=== PATIENT | female | born 1995 | race Hispanic/Latino ===

== ENCOUNTER 2020-01-04 11:06 | Emergency (ER) | payer OTHER, SELFPAY ==
--- NOTE | 2020-01-04 12:24 | RAD ---
Chest one view HISTORY: Cough. Chest pain. COMPARISON: 12/14/2019. FINDINGS: Cardiac silhouette and pulmonary vasculature are unremarkable. Mediastinum is midline. No confluent airspace consolidation or evidence of pneumothorax. IMPRESSION : No abnormalities are demonstrated.
[2020-01-05 11:02] LABS: SARS-CoV-2 MS2 Positive; SARS-CoV-2 N Gene Negative; SARS-CoV-2 S Gene Negative; SARS-CoV-2 orf1ab Negative
== END 2020-01-04 12:36 | disposition home or self-care (01) ==
LOC: ERS 11:06
DX: R04.2 Hemoptysis (principal); Z20.828 Contact with and (suspected) exposure to other viral communicable diseases
CPT/HCPCS: 71045; 87635; U0003

== ENCOUNTER 2020-02-20 06:46 | Outpatient (CLI) | payer OTHER ==
--- NOTE | 2020-02-20 07:59 | ULT ---
OB ULTRASOUND: HISTORY: Evaluate for nuchal cord FINDINGS: A single live intrauterine gestation is seen with measurements corresponding to an estimated gestatio nal age of 32 weeks, 5 daysand CAROLINE at 04/11/2020. The estimated weight measures 2002 g or 4 pounds and 7 ounces (13% by Hadlock criteria). biometry: BPD: 8.06 cm, 32 weeks 3 days HC: 29.92 cm, 33 weeks for 2 days AC: 28.83 cm, 32 weeks 6 days FL: 6.16 cm, 32 weeks 0 days heart rate: 138bpm Placenta: Anterior Placenta previa: No RIGOBERTO: 17cm A three-vessel cord is seen without definite evidence of a nuchal cord. IMPRESSION: Single live intrauterine gestation of 32 weeks 5 daysestimated gestational age and CAROLINE at 04/11/2020
== END 2020-02-20 06:47 | disposition home or self-care (01) ==
LOC: BICULT 06:46
PROVIDERS: ATTEND Student in an Organized Health Care Education/Training Program
DX: O28.3 Abnormal ultrasonic finding on antenatal screening of mother (principal); Z3A.32 32 weeks gestation of pregnancy
CPT/HCPCS: 76816

== ENCOUNTER 2020-04-01 03:12 | Inpatient (IN) | payer OTHER, SELFPAY ==
[2020-04-01] MEDS ORDERED: hydrALAZINE 20 MG/ML VIAL SLOW IVP PRN ×2 (04:24→06:56)
--- NOTE | 2020-04-01 04:24 | PDOC.FPROB ---
FMR OB H&P: HPI - History of Present Illness Chief Complaint: Abdominal pain History of Present Illness: Patient is a 24 year old at 39.5 wks who presents to triage with complains of abdominal pain that began at midnight. The patient is unable to specify the pain and is not able to quantity it on a 0-10 scale. + FM. She denies contractions, vaginal bleeding, vaginal discharge and LOF. She also denies headache, vision changes, chest pain, SOB, and dysuria. She was last seen at [facility] yesterday. Cervical check at that time was reportedly /-3. Primary Care Physician: [facility] Alex Torres FMR OB H&P: Current - Care : 2 Para: 1 Gestational age: 39.5 Due date: 04/05/20 Course/Complications: Anemia in treated with iron and vitamin. - OB Labs Blood type: O RH: positive Antibody Screen: negative HIV: negative RPR: negative HepBsAg: negative Rubella: immune Gonorrhea: negative Chlamydia: negative GBS: negative FMR OB H&P: History - Past Medical History PMH: None - OB History OB History: 1 uneventful with at 40 wks in 2015 in [place]. 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 - Family History Family History: Unremarkable FMR OB H&P: Medications - Current Home Medications: Medication Instructions Recorded Confirmed Type Vits96/Iron Fum/Folic 1 tab PO DAILY 02/09/20 02/09/20 History [ Tablet] Allergies/Adverse Reactions: Allergies Allergy/AdvReac Type Severity Reaction Status Date / Time No Known Allergies Allergy Verified 02/09/20 16:48 FMR OB H&P: ROS - Review of Systems General: denies: fever/chills, fatigue Eyes: denies: vision changes, double vision Cardiovascular: denies: chest pain, palpitation, edema Respiratory: denies: cough, shortness of breath Gastrointestinal: reports: abdominal pain. denies: cramping, nausea, vomiting Genitourinary (Female): denies: dysuria, hematuria Musculoskeletal: denies: pain, tenderness Neurologic: denies: syncope, headache Integumentary: denies: rash, lesions FMR OB H&P: Vital Signs - Heart Tones Baseline: 130 Variability: moderate Acceleration: present Deceleration: absent Category: category 1 [place] contractions every: 3-5 min FMR OB H&P: Physical Exam - Physical Exam General: NAD, awake, alert and oriented HEENT: normocephalic and atraumatic Neck: supple, trachea midline Chest: non-tender to palpation, no lesions Heart: RRR, normal S1/S2, no edema Deviation from normal: Systolic ejection murmur present General: CTAB, no respiratory distress Abdomen: gravid, non-tender, bowel sound present Musculoskeletal: FROM in all four extremities, no misalignment/asymmetry Skin: capillary refill <2 seconds, no jaundice Lymphatic: no unusual bruising or bleeding Psychiatric: normal mood and affect - Pelvic Exam Deviation from normal: /-3, posterior Presentation: Cephalic FMR OB H&P: A/P - Problem List (1) Term delivered Current Visit: Yes Status: Acute Code(s): O80 - ENCOUNTER FOR FULL-TERM UNCOMPLICATED DELIVERY Disposition: Term , in labor /-3, unchanged from exam 1 day ago in clinic. Patient made cervical change from fist exam to /-3 @ 0600. Will admit to L& D for expectant management. Naomie MAURICIO PGY2, Oscar PGY1 Discussion: Date/Time: 04/01/20 0424 This H&P was discussed with Dr. Saab who agrees with the above documentation and plan.
[2020-04-01] MEDS ORDERED: Promethazine HCl 25 MG/ML VIAL IM SCH (04:45)
[2020-04-01] MEDS ORDERED: Morphine 10 MG/ML VIAL IM SCH (04:45)
[2020-04-01] MEDS: Lactated Ringer's 1,000 ML IV SCH ×2 (06:51→15:17)
[2020-04-01] MEDS ORDERED: Butorphanol Tartrate 1 MG/ML VIAL SLOW IVP PRN (06:56)
[2020-04-01] MEDS ORDERED: Diphenoxylate HCl/Atropine Tablet PO PRN ×2 (06:56)
[2020-04-01] MEDS ORDERED: Lidocaine 1% (PF) 30 ML VIAL SC PRN (06:56)
[2020-04-01] MEDS ORDERED: Carboprost 250 MCG/ML AMP IM PRN (06:56)
[2020-04-01] MEDS ORDERED: Acetaminophen 500 MG TAB PO PRN (06:56)
[2020-04-01] MEDS ORDERED: Methylergonovine 0.2 MG/ML VIAL IM PRN (06:56)
[2020-04-01] MEDS ORDERED: Misoprostol 200 MCG TAB PR PRN (06:56)
[2020-04-01] MEDS ORDERED: Ibuprofen 800 MG TAB PO PRN (06:56)
[2020-04-01] MEDS ORDERED: NS / Oxytocin 40 units/1000ml 1,000 ML IV PRN (06:56)
[2020-04-01] MEDS ORDERED: Ondansetron PF 4 MG/2 ML Vial IVP PRN (06:56)
[2020-04-01] MEDS ORDERED: Promethazine HCl 25 MG/ML VIAL IM PRN (06:56)
[2020-04-01] MEDS ORDERED: Lidocaine 1% (PF) 30 ML VIAL ONE (06:57)
[2020-04-01] MEDS ORDERED: NS / Oxytocin 40 units/1000ml 1,000 ML ONE (06:57)
[2020-04-01 07:10] LABS: Hemoglobin 12.6 g/dL (12.0-16.0); Mean Corpuscular HGB CONC 33.2 g/dL (32.0-36.0); Mean Corpuscular Hemoglobin 27.5 pg (27.0-31.0); Mean Platelet Volume 10.5 fL (7.4-10.4); Platelet Count 162 thou/uL (130-400); RBC Distribution Width 12.5 % (11.5-14.5); Red Blood Cell (RBC) Count 4.59 mill/uL (4.20-5.40); White Blood Cell (WBC) Count 11.7 thou/uL (4.8-10.8)
[2020-04-01 07:48] LABS: Syphilis Antibody Nonreactive (Nonreactive); Syphilis Antibody Index 0.03 S/CO (<1.00 Non-Reactive)
[2020-04-01 07:56] LABS: HBSAg Index 0.22 S/CO (0-0.99); Hep B Surf Ag Non-Reactive S/CO (NonReactive)
--- NOTE | 2020-04-01 08:20 | PDOC.OPDEL ---
OB Operative/Delivery Note Delivery Dr/Surgeon: Brian / [facility] Pre-Delivery Diagnosis: active labor Procedure/Post Delivery Dx: spontaneous vaginal delivery Weeks gestation: 39 (5) Anesthesia: none - Findings A Sex: female (0805) - 1 min: 8 - 5 min: 9 - Additional Findings/Plan Placenta delivered: spontaneous Estimated blood loss: 50mL Compilations/Other Findings: Pre-op Diagnosis: 1. Term intrauterine in labor Post-op Diagnosis: 1. Term intrauterine , delivered Indications: A 24 year old at 39.5 wks presents in active labor Delivery Note: This is 24 year old at 39.5 wks who delivered a viable F infant at 0805 04/01/2020. Following an uneventful antepartum course, a vigorous F was delivered over an intact perineum in the occipitoanterior position. Anterior Shoulder and then remainder of the body delivered. No nuchal cord. The head was held down and mouth and nares were bulb suctioned. Cord clamped and cut and cord blood collected. Placenta delivered intact with a 3 vessel cord noted. Fundal massage was performed and the fundus was firm. There was a small hemostatic 1st degree perineal laceration that did not require repair. went to nursery in good condition for routine care. Apgars were 8 /9 at 1 & 5 minutes, respectively. Patient tolerated delivery well and went to after routine recovery/care. Naomie MAURICIO PGY2 Post delivery plan: routine recovery Addendum - Attending - Attending Attestation Dr Saab was present for uncomplicated delivery of the and I was present for the delivery of placenta.
[2020-04-01 09:51] VITALS: BMI 26.7
[2020-04-01] MEDS ORDERED: Adacel (T-DAP) 0.5 ML SYRINGE IM ONE (11:16)
[2020-04-01] MEDS ORDERED: Bisacodyl 10 MG SUPP PR PRN (11:16)
[2020-04-01] MEDS ORDERED: NS / Oxytocin 40 units/1000ml 1,000 ML IV SCH (11:16)
[2020-04-01] MEDS ORDERED: Milk Of Magnesia 30 ML UDCUP PO PRN (11:16)
[2020-04-01] MEDS ORDERED: Benzocaine-Menthol 82.5 ML CAN TOP PRN (11:16)
[2020-04-01] MEDS: Ferrous Sulfate 325 MG TAB PO SCH (12:53)
[2020-04-01] MEDS: Ibuprofen 800 MG TAB PO SCH ×2 (15:18→21:39)
[2020-04-01] MEDS: Docusate Calcium (SURFAK) 240 MG CAP PO SCH (21:39)
[2020-04-02] MEDS: Ibuprofen 800 MG TAB PO SCH ×2 (05:28→14:08)
--- NOTE | 2020-04-02 07:02 | PDOC.PP ---
Post Progress Note Post Day #: 1 Subjective: Doing well, pain is well controlled. No concerns. PO intake tolerated: yes Flatus: yes Ambulation: yes Vital Signs (12 hours) Temp Pulse Resp BP Pulse Ox 04/02/20 05:25 98.3 F 75 14 113/57 L 97 04/02/20 00:37 98.4 F 67 15 126/64 04/01/20 19:55 98.8 F 72 16 122/56 L Weight Weight 58.06 kg - Physical Examination General: NAD Cardiovascular: no m/r/g, RRR Respiratory: clear to auscultation bilaterally, non-labored breathing Abdominal: + bowel sounds, lochia, no distention, appropriately TTP Neurological: no gross focal deficits Psychiatric: A&Ox3, normal affect Result Diagrams: 04/01/20 06:55 Additional Labs: Post Labs Blood Type O POSITIVE 04/01/20 07:33 Hep Bs Antigen Non-Reactive S/CO (NonReactive) 04/01/20 06:55 (1) Term delivered Code(s): O80 - ENCOUNTER FOR FULL-TERM UNCOMPLICATED DELIVERY Status: Acute - Assessment/Plan PPD #1 s/p 04/01 @ 0805 - Doing well, routine recovery. Minimal pain and lochia. - Desires d/c home today if baby is able to d/c. - Formula feeding. - Does not desire contraception at this time, recommended pelvic rest for 6 weeks and alternate form of control. Counseled on waiting 18 months between babies. - Will f/u at [facility] in 2 weeks. Naomie MAURICIO PGY2
[2020-04-02] MEDS: Lactated Ringer's 1,000 ML IV SCH (09:29)
[2020-04-02] MEDS: Ferrous Sulfate 325 MG TAB PO SCH (09:30)
[2020-04-02] MEDS: Docusate Calcium (SURFAK) 240 MG CAP PO SCH (09:30)
[2020-04-02 09:32] VITALS: BP 115/56; TEMP 97.9
[2020-04-02 11:50] LABS: SARS-CoV-2 MS2 Positive; SARS-CoV-2 N Gene Positive; SARS-CoV-2 S Gene Positive; SARS-CoV-2 by NAA DETECTED (NotDetected); SARS-CoV-2 orf1ab Positive
== END 2020-04-02 14:23 | disposition home or self-care (01) | DRG 805 ==
LOC: L&D/OP 03:12 → L&D 07:11 → 3SE 11:59 → 3SW 17:57
PROVIDERS: ADMIT Obstetrics & Gynecology; ATTEND Obstetrics & Gynecology
PROC: 10E0XZZ Delivery of Products of Conception, External Approach (ICD-10-PCS; principal; 2020-04-01)
DX: O99.02 Anemia complicating childbirth (principal); U07.1 COVID-19; Z37.0 Single live birth; O98.52 Other viral diseases complicating childbirth; D64.9 Anemia, unspecified; O70.0 First degree perineal laceration during delivery; Z3A.39 39 weeks gestation of pregnancy
CPT/HCPCS: 36415; 85027; 86780; 86850; 86900; 86901; 87340; 87635; 99285; J2001; J2270; J2550; U0003

== ENCOUNTER 2021-06-20 17:28 | Emergency (ER) | payer OTHER, MEDICAID ==
[2021-06-20 17:57] LABS: #Basophils 0.1 thou/uL (0.0-0.2); #Eosinphils 0.3 thou/uL (0.0-0.7); #Lymphocytes 2.1 thou/uL (1.20-3.40); #Monocytes 0.6 thou/uL (0.11-0.59); #Neutrophils 4.9 thou/uL (1.40-6.50); %Basophils 0.7 % (0.0-1.0); %Eosinophils 3.5 % (0.0-10.0); %Lymphocytes 26.4 % (21.0-51.0); %Monocytes 7.6 % (0.0-10.0); %Neutrophils 61.8 % (42.0-75.0); Hemoglobin 12.7 g/dL (12.0-16.0); Mean Corpuscular Hemoglobin 27.1 pg (27.0-31.0); Mean Platelet Volume 8.9 fL (7.4-10.4); Platelet Count 237 thou/uL (130-400); RBC Distribution Width 11.9 % (11.5-14.5)
[2021-06-20 18:18] LABS: ALT (SGPT) 13 U/L (8-55); AST (SGOT) 13 U/L (5-34); Albumin 4.3 g/dL (3.5-5.0); Alkaline Phosphatase 67 U/L (40-110); Anion Gap 12 mmol/L (10-20); BUN (Urea Nitrogen) 10 mg/dL (7.0-18.7); Bilirubin, Total 0.4 mg/dL (0.2-1.2); Calc. Creatinine Clearance 0 mL/min (70-130); Calcium 9.4 mg/dL (7.8-10.44); Carbon Dioxide 24 mmol/L (22-29); Chloride 108 mmol/L (98-107); Globulin 3.3 g/dL (2.4-3.5); Glucose 89 mg/dL (70-105); Potassium 3.9 mmol/L (3.5-5.1); Protein, Total 7.6 g/dL (6.0-8.3); Sodium 140 mmol/L (136-145)
[2021-06-20 19:18] LABS: Bacteria/HPF 1+ HPF (None Seen); Bilirubin Negative (Negative); Blood, Urine 2+ (Negative); Clarity Turbid (Clear); Glucose, Urine (Dipstick) Normal (Negative); Ketone, Urine Negative (Negative); Leukocyte 500 Leu/uL (Negative); Nitrite Negative (Negative); Protein, Urine (Dipstick) 100 mg/dL (Neg-Trace); RBC/HPF 21-50 HPF (0-3); Specific Gravity, Urine 1.018 (1.002-1.036); Squamous Epithelial 0-3 HPF (0-3); Urobilinogen Normal mg/dL (Less than 2); WBC/HPF Greater than 50 HPF (0-3); pH, Urine 7.5 (5.0-9.0)
[2021-06-20 19:19] LABS: Pregnancy Test - Urine (BHCG) Negative (Negative); Pregu Control Background? CLEAR/WHITE (CLR/WHITE); Pregu Control Bar Appear? YES (CONTROL BAR); Specific Gravity 1.018 (1.002-1.036)
[2021-06-20] MEDS ORDERED: Ketorolac Tromethamine 30 MG/ML VIAL ONE (19:56)
== END 2021-06-20 20:19 | disposition home or self-care (01) ==
LOC: ERS 17:28
DX: N12 Tubulo-interstitial nephritis, not specified as acute or chronic (principal)
CPT/HCPCS: 36415; 80053; 81003; 81015; 81025; 85025; 87077; 87086; 87186; 96372; 99284; J1885